=== PATIENT | male | born 1940 | race Caucasian/White ===

== ENCOUNTER 2017-04-05 10:25 | Emergency (ER) | payer MEDICARE ==
[~2017-04-05] VITALS: Ht 188 cm; Wt 82.0 kg
[~2017-04-05 10:25] MED LIST: AMLODIPINE10 MG PO; AMLODIPINE5 MG PO; ASPIRIN CHEWABL81 MG PO; CARAFATE1 GM PO; COUMADIN2.5 MG PO; COUMADIN5 MG PO; COZAAR100 MG PO; DOXAZOSIN1 MG PO; DOXAZOSIN8 M1 PO; DOXAZOSIN8 MG PO; FISH OIL1000 MG PO; HYDROCHLOROT25 MG PO; KEFLEX500 M1 PO; LOPRESSOR 550 MG/TAB PO; LOPRESSOR12.5 MG PO; LOSARTAN POT100 MG PO; LOSARTAN POTASS50 MG PO; METOPROLOL PO; NEXIUM40 M1 PO; ONE DAILY MENS PO; PROAIR HFA IN; SYMBICORT1 AE1 IN; TOPROL XL25 M1 PO; TOPROL XL50 MG PO; WARFARIN2.5 MG PO; cozaar PO
[2017-04-05] MEDS ORDERED: NORVASC2.5 MG PO (10:39)
[2017-04-05] MEDS ORDERED: GABAPENTIN100 MG PO (10:39)
[2017-04-05] MEDS ORDERED: HYDROCHLOROT12.5 M1 PO (10:40)
[2017-04-05 11:25] LABS: HEMATOCRIT 40.4 % (39.0-50.0); HEMOGLOBIN 13.6 g/dl (14.0-18.0); IMMATURE GRANULOCYTES 0.5 % (0.0-1.0); MEAN CELL VOLUME 94.8 fL CALC (80.0-100.0); MEAN CORPUSCULAR HGB 31.9 pG CALC (26.0-32.0); MEAN CORPUSCULAR HGB CONC 33.7 g/L CALC (32.0-36.0); NEUT# 3.64 thou/uL (1.82-7.42); RED BLOOD COUNT 4.26 mill/uL (4.70-6.10); RED CELL DISTRI WIDTH 12.5 % (11.5-15.5)
[2017-04-05 11:29] LABS: ALBUMIN 4.1 g/dL (3.2-5.0); ALKALINE PHOSPHATASE 45 u/l (38-126); AMYLASE 94 u/l (30-110); ANION GAP 14 (6-22 (CALC)); BILIRUBIN, TOTAL 0.8 mg/dL (0.0-1.4); BUN 18 mg/dL (8-23); BUN/CREATININE RATIO 19 (12-20 (CALC)); CALCIUM 9.4 mg/dL (8.4-10.2); CARBON DIOXIDE 30 mmol/l (22-30); CHLORIDE 103 mmol/l (95-108); GFR > 60 ML/MIN (>=60 (CALC)); GFR FOR AFR.AMER. > 60 ML/MIN (>=60 (CALC)); GLUCOSE 102 mg/dL (82-115); LIPASE 82 u/l (23-300); POTASSIUM 3.8 mmol/l (3.5-5.1); SGOT/AST 29 u/l (19-48); SGPT/ALT 34 u/l (11-66); SODIUM 143 mmol/l (137-146); TOTAL PROTEIN 7.4 g/dL (6.3-8.2)
[2017-04-05 11:40] LABS: MYOGLOBIN 71 ng/mL (0 - 121)
[2017-04-05 12:39] LABS: URINE BILIRUBIN - DIPSTICK NEGATIVE (NEGATIVE); URINE BLOOD DIPSTICK TRACE-INTACT (NEGATIVE); URINE CLARITY CLEAR; URINE COLOR YELLOW; URINE GLUCOSE - DIPSTICK NEGATIVE (NEGATIVE); URINE KETONE NEGATIVE (NEGATIVE); URINE LEUK ESTERASE NEGATIVE (NEGATIVE); URINE NITRITE - DIPSTICK NEGATIVE (Negative); URINE PH 7.5 (4.5-8.0); URINE PROTEIN - DIPSTICK NEGATIVE (NEG-TRACE); URINE UROBILINOGEN - DIPSTICK 0.2 E.U./dL (0.2)
[2017-04-05] MEDS ORDERED: CIPROFLOXACN750 MG PO (13:00)
[2017-04-05] MEDS ORDERED: COLACE100 MG PO (13:00)
[2017-04-05 13:06] VITALS: BP 130/90
== END 2017-04-05 13:10 | disposition home or self-care (01) ==
LOC: ED 10:25
PROVIDERS: Emergency Medicine
DX: R10.32 Left lower quadrant pain (principal); I10 Essential (primary) hypertension; I48.91 Unspecified atrial fibrillation; Z79.01 Long term (current) use of anticoagulants; K57.30 Diverticulosis of large intestine without perforation or abscess without bleeding
CPT/HCPCS: Q9967

== ENCOUNTER 2017-08-08 15:47 | Emergency (ER) | payer MEDICARE ==
[~2017-08-08] VITALS: Ht 188 cm; Wt 84.0 kg
[~2017-08-08 15:47] MED LIST changes: +CIPROFLOXACN750 MG PO; +COLACE100 MG PO; +GABAPENTIN100 MG PO; +HYDROCHLOROT12.5 M1 PO; +NORVASC2.5 MG PO
[2017-08-08 17:02] LABS: HEMATOCRIT 45.4 % (39.0-50.0); HEMOGLOBIN 15.3 g/dl (14.0-18.0); IMMATURE GRANULOCYTES 0.4 % (0.0-1.0); MEAN CELL VOLUME 93.4 fL CALC (80.0-100.0); MEAN CORPUSCULAR HGB 31.5 pG CALC (26.0-32.0); MEAN CORPUSCULAR HGB CONC 33.7 g/L CALC (32.0-36.0); RED BLOOD COUNT 4.86 mill/uL (4.70-6.10); RED CELL DISTRI WIDTH 12.7 % (11.5-15.5)
[2017-08-08 17:27] LABS: ALBUMIN 3.8 g/dL (3.2-5.0); ALKALINE PHOSPHATASE 74 u/l (38-126); ANION GAP 14 (6-22 (CALC)); BILIRUBIN, TOTAL 0.5 mg/dL (0.0-1.4); BUN 17 mg/dL (8-23); BUN/CREATININE RATIO 16 (12-20 (CALC)); CALCIUM 9.1 mg/dL (8.4-10.2); CARBON DIOXIDE 27 mmol/l (22-30); CHLORIDE 105 mmol/l (95-108); GFR > 60 ML/MIN (>=60 (CALC)); GFR FOR AFR.AMER. > 60 ML/MIN (>=60 (CALC)); GLUCOSE 130 mg/dL (82-115); POTASSIUM 3.6 mmol/l (3.5-5.1); SGOT/AST 37 u/l (19-48); SGPT/ALT 27 u/l (11-66); SODIUM 143 mmol/l (137-146); TOTAL PROTEIN 7.7 g/dL (6.3-8.2)
[2017-08-08 17:39] LABS: MYOGLOBIN 48 ng/mL (0 - 121)
[2017-08-08 17:56] LABS: INTERNATIONAL NORMALIZED RATIO 2.1 RATIO (0.7-1.3); PROTHROMBIN TIME 24.1 SECONDS (9.0-12.5)
[2017-08-08 17:57] VITALS: BP 111/74
== END 2017-08-08 18:01 | disposition home or self-care (01) ==
LOC: ED 15:47
PROVIDERS: Emergency Medicine
DX: I48.91 Unspecified atrial fibrillation (principal); I10 Essential (primary) hypertension; E78.5 Hyperlipidemia, unspecified; J43.9 Emphysema, unspecified; Z79.01 Long term (current) use of anticoagulants

== ENCOUNTER 2018-07-09 10:46 | Inpatient (IN) | payer MEDICARE ==
[~2018-07-09] VITALS: Ht 190.5 cm; Wt 80.5 kg
[2018-07-09] VITALS (13 sets, daily range): BP systolic 103–139; BP diastolic 63–82
[~2018-07-09 10:46] MED LIST changes: -LOPRESSOR12.5 MG PO
--- NOTE | 2018-07-09 10:46 | NUR ---
PT DIRECTLY TO ROOM VIA WHEELCHAIR. PT COOL AND DIAPHORETIC AND STEEN IN COLOR. MD NOTIFIED AND IS IN ROOM.
[2018-07-09 11:11] LABS: HEMOGLOBIN 10.5 g/dl (14.0-18.0); IMMATURE GRANULOCYTES 2.3 % (0.0-5.0); MEAN CELL VOLUME 95.2 fL CALC (80.0-100.0); MEAN CORPUSCULAR HGB 31.3 pG CALC (26.0-32.0); MEAN CORPUSCULAR HGB CONC 32.8 g/L CALC (32.0-36.0); NEUT# 8.06 thou/uL (1.82-7.42); RED BLOOD COUNT 3.36 mill/uL (4.70-6.10); RED CELL DISTRI WIDTH 19.9 % (11.5-15.5)
--- NOTE | 2018-07-09 11:24 | NUR ---
PT STATES HAVING DIARHEA FOR PAST 3 DATS. PT HAS WORSENING SOB FOR PAST 2 DAYS.; PT IS AOX4. PT DENIES ANY N/V, C/P, PT STATES FEELING WEAKER. PT HAS FULL USE OF ALL EXTREMITIES.
[2018-07-09 11:27] LABS: BILIRUBIN, TOTAL 0.7 mg/dL (0.0-1.4); CREATININE 1.6 mg/dL (0.7-1.3); POTASSIUM 3.8 mmol/l (3.5-5.1); TOTAL PROTEIN 6.7 g/dL (6.3-8.2)
--- NOTE | 2018-07-09 11:28 | NUR ---
NEOSYNEPHRINE 1 MG PUSH AT 1114 NEOSYNEPHRINE 1 MG PUSH AT 1119 MD AT BEDSIDE WITH ADMINISTRATION
[2018-07-09 12:01] LABS: INFLUENZA A NONE DETECTED (NONE DETECT); INFLUENZA B NONE DETECTED (NONE DETECT)
--- NOTE | 2018-07-09 12:01 | NUR ---
PT TO CT WITH NURSE AND PORTABLE MONITOR
[2018-07-09 12:09] LABS: INTERNATIONAL NORMALIZED RATIO 10.6 RATIO (0.7-1.3)
[2018-07-09 12:18] LABS: URINE BILIRUBIN - DIPSTICK NEGATIVE (NEGATIVE); URINE BLOOD DIPSTICK SMALL (NEGATIVE); URINE COLOR YELLOW; URINE GLUCOSE - DIPSTICK NEGATIVE (NEGATIVE); URINE KETONE NEGATIVE (NEGATIVE); URINE LEUK ESTERASE NEGATIVE (NEGATIVE); URINE NITRITE - DIPSTICK NEGATIVE (Negative); URINE PROTEIN - DIPSTICK 100 mg/dL (NEG-TRACE); URINE SPECIFIC GRAVITY 1.025; URINE UROBILINOGEN - DIPSTICK 0.2 E.U./dL (0.2)
[2018-07-09 12:26] LABS: URINE CLARITY SL CLOUDY
--- NOTE | 2018-07-09 12:28 | NUR ---
PT RETURNED FROM CT WITH NURSE. RECONNECTED TO MONITOR, NO COMPLAINTS STATED
[2018-07-09 12:29] LABS: URINE EPITHELIAL CELLS MODERATE EPI/hpf (0-FEW); URINE MUCUS FEW hpf (NONE-FEW); URINE RBC 0-2 RBC/hpf (0-5)
[2018-07-09] MEDS ORDERED: POT CHLORIDE10 ME5 PO (13:25)
--- NOTE | 2018-07-09 13:28 | NUR ---
PT RESTING ON STRETCHER, IV SALINE DISCONTINUED PER MD. PT STATES NO COMPLAINTS
--- NOTE | 2018-07-09 13:37 | NUR ---
REPORT CALLED TO STEPH FRITZ-ACCEPTED PT
--- NOTE | 2018-07-09 13:52 | NUR ---
male pt received to ICU bed 4 via stretcher accompanied by Patrick Jackman RN in stable condition; ambulatory to bed with steady gait; weight obtained via bed scale; admission assessment completed at this time; pt alert and oriented; c/c of diarrhea X3 days and worsening sob x2 days associated with fever of 102.0 at home; pt denies pain; no n/v/diaphoresis noted at this time; resp even and unlabored with exertional sob noted; lungs clear/diminished bases; skin color pale; o2 per nc at 2L; dry manual machinist cough noted; hr irreg; strong pulses; no edema noted; bilat knee high arvin hose placed; abd soft with bs present; pt admits to bm 07/09/18; admits to voiding without complication; no urine to inspect at this time; #20 in lac patent with vanco infusing without complication; #18 in rfa patent with cardizem gtt infusing at 10mg/hr; TLC intact to RIJ/ lumens flushed with good blood aspirate noted; no redness or edema noted at site; scab area with slight redness noted to upper groin/pubis are; no drainage noted; plan of care/ meds explained; call light within reach; will continue to monitor
--- NOTE | 2018-07-09 14:01 | NUR ---
Admission Note Report Given to: STEPH RN Transported by: Wheelchair X Stretcher Transported with: X Nurse Transporter X Patent IV X O2 X Flight Control Tower Operator PT TRANSPORTED TO ICU 4 WITHOUT INCIDENT. LEVOFED AND NEOSYNEPHRINE MIX GIVEN TO RN.
--- NOTE | 2018-07-09 14:35 | NUR ---
Dr Chavarria present at bedside to assess pt and discuss plan of care; pt will conitnue with Cradizem gtt; MD to be notified with hypotension;
--- NOTE | 2018-07-09 15:00 | NUR ---
awake in bed; offers no complaints; no distress noted; afib on monitor; hr 90s; bp maintained; deny needs; iv patent; cardizem gtt continues at 10mg/hr; call light within reach; will continue to monitor
--- NOTE | 2018-07-09 15:13 | NUR ---
US at bedside for renal ultrasound
--- NOTE | 2018-07-09 16:10 | NUR ---
up to bsc with stand by assist; sob noted on exertion associated with tachycardia; slow deep breathing encouraged; o2 per nc; afib on monitor; mod loose brown bm noted; #18 dislodged from rfa with catheter tip intact; pressure dressing applied; cardizem infusing via TLC; pt deny needs; call light within reach; will continue to monitor
--- NOTE | 2018-07-09 16:19 | NUR ---
s/o present at bedside; copy of living will obtained and placed on chart;
--- NOTE | 2018-07-09 16:29 | NUR ---
Dr Chavarria informed per this race and sports book writer, no active orders for antibiotics/ fluids; no orders received
--- NOTE | 2018-07-09 18:14 | NUR ---
awake in bed; no distress noted; iv patent; no redness or edema noted at sites; afib on monitor; cardizem gtt continues at 10mg/hr; bp stable; pt offers no complaints; bed in lowest position; side rails elevated; call light within reach
--- NOTE | 2018-07-09 19:20 | NUR ---
awake. denies distress. o2 cont per nc. school lunch monitor shows a fib pvcs. #20 lac saline lock. cardizem gtt infusing @ 10mghr per rij. po fluids taken fair. voids per urinal. fall precautions cont.
--- NOTE | 2018-07-09 21:00 | NUR ---
mechanical manufacturing technician here.
--- NOTE | 2018-07-09 22:00 | NUR ---
animal technician left.
--- NOTE | 2018-07-09 23:15 | NUR ---
stood with assist to void. pt became VERY sob with activity. o2 sat 85%. 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 voided then back to bed. fan provided. after resting o2 sat 93% hr 104.
[2018-07-10] VITALS (21 sets, daily range): BP systolic 95–160; BP diastolic 59–94
--- NOTE | 2018-07-10 01:50 | NUR ---
phototypesetting equipment monitor shows sinus rhythm pacs hr 72. rt notified of need for ekg.
--- NOTE | 2018-07-10 01:52 | NUR ---
rt here. ekg obtained.
--- NOTE | 2018-07-10 04:00 | NUR ---
awake. no distress. manager monitoring shows sinus rhythm pvcs.
--- NOTE | 2018-07-10 05:00 | NUR ---
blood drawn & sent to lab.
[2018-07-10 05:25] LABS: HEMATOCRIT 26.4 % (39.0-50.0); IMMATURE GRANULOCYTES 2.1 % (0.0-5.0); MEAN CELL VOLUME 93.6 fL CALC (80.0-100.0); MEAN CORPUSCULAR HGB 31.9 pG CALC (26.0-32.0); MEAN CORPUSCULAR HGB CONC 34.1 g/L CALC (32.0-36.0); NEUT# 5.14 thou/uL (1.82-7.42); RED BLOOD COUNT 2.82 mill/uL (4.70-6.10); RED CELL DISTRI WIDTH 19.8 % (11.5-15.5)
[2018-07-10 05:40] LABS: INTERNATIONAL NORMALIZED RATIO 3.8 RATIO (0.7-1.3); PROTHROMBIN TIME 39.1 SECONDS (9.0-12.5)
[2018-07-10 05:47] LABS: BILIRUBIN, TOTAL 0.7 mg/dL (0.0-1.4); CREATININE 1.4 mg/dL (0.7-1.3); POTASSIUM 3.8 mmol/l (3.5-5.1)
[2018-07-10 05:54] LABS: ALBUMIN 2.3 g/dL (3.2-5.0); TOTAL PROTEIN 5.3 g/dL (6.3-8.2)
--- NOTE | 2018-07-10 07:20 | NUR ---
PT RESTING IN BED WATCHING TELEVISION, AM ASSESSMENT COMPLETED AT THIS TIME, R IJ TLC NOTED WITH DRESSING CLEAN DRY AND INTACT; MAGNESIUM IV INFUSING ORDERED AND CARDIZEM GTT INFUSING PER PROTOCOL AT 10mg/hr; ALL LUMENS OF TLC FLUSHED W/O INCIDENT AND GOOD ASPIRATE NOTED; LUNGS DIMINSHED BUT CLEAR; PT ON O2 AT 2L VIA NC WITH DYSPNEA NOTED JUST DURING CONVERSATION W/O EXERTION; PT DENIES O2 USAGE AT HOME; ABD SOFT; BS ACTIVE STATES DIARRHEA AT HOME BUT RESOLVED PRIOR TO ADMISSION; DENIES FEELING CONSTIPATED; SKIN WARM DRY AND INTACT; NO BREAKDOWN NOTED; PT ADMITS TO CURRENT CHEMOTHERAPY RELATED TO BLADDER CA; STATES HE WAS DUE YESTERDAY FOR A TREATMENT BUT CANCELLED RELATED TO HOSPITALIZATION. NO EDEMA NOTED; PT AFEBRILE AND B/P STABLE; SEE INTERVENTIONS; SAFETY MEASURES REINFORCED; CALL HERNANDEZ WITHIN REACH; INSTRUCTED TO CALL FOR ANY NEEDED ASSISTANCE; WILL CONTINUE TO MONITOR.
--- NOTE | 2018-07-10 07:45 | NUR ---
SET UP ASSIST PROVIDED FOR AM MEAL; CALLBELL WITHIN REACH.
--- NOTE | 2018-07-10 07:50 | NUR ---
AT BEDSIDE; PLAN OF CARE DISCUSSED; INCLUDING OBTAINING RECORDS FROM PT'S STAVE JOINTER. CONSENT OBTAINED.
--- NOTE | 2018-07-10 08:20 | NUR ---
BLOOD CULTURE PRELIMINARY RESULTS CALLED TO AT 0752. NO NEW ORDERS AT THIS TIME.
--- NOTE | 2018-07-10 08:28 | NUR ---
PT ATE MINIMAL AMOUNT OF AM MEAL; OFFERS NO COMPLAINTS; TELE CONTINUES TO READ AFIB RATE IN THE 80-LOW 100'S. BP REMAINS STABLE; WILL CONTINUE TO MONITOR.
--- NOTE | 2018-07-10 09:35 | NUR ---
INTO SEE PATIENT; PLAN OF CARE DISCUSSED INCLUDING CHANGING IV ABT TO VANCO RELATED TO +BC AND PT IMMUNOCOMPROMISED R/T CHEMO TREATMENT; ALSO AWARE OF SLIGHTLY REDDENED SCABBED AREA TO PUBIC AREA AND SMALL PUSTULE NOTED RIGHT AT BASE OF PENIS IN PUBIC AREA; PT STATES THAT THE REDDENED AREA STARTED OFF A "PIMPLE LIKE THING THAT GOT BIGGER AND WAS REALLY SORE". PHARMACY CONSULTED FOR VANCO THERAPY; SIGNIFICANT OTHER AT BEDSIDE AND BOTH VERBALIZE UNDERSTANDING OF CURRENT TREATMENT PLAN.
--- NOTE | 2018-07-10 10:07 | NUR ---
PER CONTINUE TO WEAN CARDIZEM AND GIVE BUMEX AFTER SBP REMAINS > 120. WILL CONTINUE TO MONITOR.
--- NOTE | 2018-07-10 11:07 | NUR ---
CARDIZEM DTT REMAINS OFF, BP STABLE SEE INTERVENTIONS AND HR MAINTAINED AT 60-80. CALL HERNANDEZ WITHIN REACH, OFFERS NO COMPLAINTS, WILL MEDICATED WITH BUMEX ORDERED AND MONITOR OUTPUT AND PT TOLERANCE; PT EDUCATED REGARDING THE REASON FRO ADMINISTRATION OF BUMEX; EXPECTATIONS; AND POSSIBLE SIDE EFFECTS. ALL QUESTIONS ANSWERED AND PT VERBALIZES UNDERSTANDING.
--- NOTE | 2018-07-10 11:35 | NUR ---
CENTRAL LINE DRESSING CHANGE USING STERILE TECHNIQUE PER PT REQUEST RELATED TO SKIN PULLING FROM DRESSING; PT TOLERATED WELL AND NO S/S OF INFECTION NOTED. PT ASSISTED TO SITTING ON EDGE OF BED FOR AM MEAL; FLUID SECRETIONS FROM NASAL CAVITY COLLECTED PER VERBAL ORDER .
--- NOTE | 2018-07-10 12:27 | NUR ---
TOLERATED AFTERNOON MEAL WELL WITH 50%+ INTAKE AND GOOD TOLERANCE, TAL FROM DIETARY AT BEDSIDE FOR DIEATRY EDUCATION AND SELECTIONS.
--- NOTE | 2018-07-10 13:26 | NUR ---
S: HEMAL DUNNE is a 77 M who presents with SOB, dizziness, and diarrhea. He has a history of HTN, Afib, bladder cancer, and emphysema. All medications in patient's chart were reviewed. O: VS: BP 122/73 mmHg, P 86 bpm, RR 22,T(F) 98.5 W 76.26 kg, HT 190.5 cm, Scr= 1.4, CrCl= 49 ml/min A: Blood culture shows gram positive cocci x 1 bottle. P: Patient was on Zosyn 3.375 gm IV Q6H and was d/c'd on 07/10/18. Vancomycin ordered for pharmacy to dose. Start Vancomycin 1 gm IV Q24H. Vancomycin trough is drawn before the 4th dose on 07/12/19 at 1130. Vancomycin goal trough is between 15-20 mcg/ml. Pharmacy will follow and or advise on antibiotics use as needed.
--- NOTE | 2018-07-10 13:30 | NUR ---
pt resting in bed watching television, offers no new complaints, easily visible from nurses station fpr safety. Fresh water provided, will continue to monitor.
--- NOTE | 2018-07-10 14:45 | NUR ---
PT RESTING IN BED USES URINAL W/O INCIDENT, CALL HERNANDEZ WITHIN REACH, WILL CONTINUE TO MONITOR.
--- NOTE | 2018-07-10 16:00 | NUR ---
SIGNIFICANT OTHER AT BEDSIDE, OFFERS NO NEW COMPLAINTS, CALL HERNANDEZ WITHIN REACH, CONTINUES TO USE URINAL W/O INCIDENT, WILL CONTINUE TO MONITOR.
--- NOTE | 2018-07-10 16:37 | NUR ---
CASE MGMT AT BEDSIDE, DISCUSSING D/C PLAN, CALL HERNANDEZ WITHIN REACH, SIGNIFICANT OTHER REMAINS AT BEDSIDE. WILL CONTINUE TO MONITOR.
--- NOTE | 2018-07-10 17:32 | NUR ---
SET UP ASSIST PROVIDED FOR PM MEAL, CALL HERNANDEZ WITHIN REACH.
--- NOTE | 2018-07-10 18:16 | NUR ---
PT OOB TO BSC WITH MIN STAND BY ASSIST, TOLERATED ACTIVITY WELL WITH MINIMAL SHORTNESS OF BREATH, TOILET PAPER AND CALL HERNANDEZ WITHIN REACH.
--- NOTE | 2018-07-10 18:33 | NUR ---
PT CONTINENTN OF URINE AND SMALL LOOSE BM, ASSISTED WITH BRYAN CARE, PT SOB FROM EXERTION ASSISTED BACK TO BED AND COMFORT MEASURES PROVIDED, FAN ON PT FOR COMFORT, CALL HERNANDEZ WITHIN REACH; WILL CONTINUE TO MONITOR.
--- NOTE | 2018-07-10 18:36 | NUR ---
SMALL AMOUNT OF BLOOD NOTED WITH NASAL DRNG, R.T. TO HUMIDIFY OXYGEN FOR COMFORT, WILL CONTINUE TO MONITOR.
--- NOTE | 2018-07-10 19:20 | NUR ---
awake. denies c/o. o2 cont per nc. rn cardiac cath shows sinus rhythm pvcs. #20 lac & rij tlc saline lock. po fluids taken fair. voids per urinal. fall precautions cont.
--- NOTE | 2018-07-10 19:26 | NUR ---
youth nutritional monitor shows a fib pvcs hr 130.
--- NOTE | 2018-07-10 22:00 | NUR ---
awake. no distress. superintendent maintenance shows a fib pvcs.
[2018-07-11] VITALS (18 sets, daily range): BP systolic 110–142; BP diastolic 77–93
--- NOTE | 2018-07-11 00:01 | NUR ---
eyes closed. no distress. dirt bike mechanic shows a fib pvcs.
--- NOTE | 2018-07-11 02:00 | NUR ---
resting quietly. resps even & unlabored. no apparent distress.
--- NOTE | 2018-07-11 04:50 | NUR ---
blood drawn & sent to lab. bed weight obtained.
[2018-07-11 05:04] LABS: HEMATOCRIT 28.2 % (39.0-50.0); HEMOGLOBIN 9.5 g/dl (14.0-18.0); IMMATURE GRANULOCYTES 1.5 % (0.0-5.0); MEAN CELL VOLUME 93.4 fL CALC (80.0-100.0); MEAN CORPUSCULAR HGB 31.5 pG CALC (26.0-32.0); MEAN CORPUSCULAR HGB CONC 33.7 g/L CALC (32.0-36.0); NEUT# 3.92 thou/uL (1.82-7.42); RED BLOOD COUNT 3.02 mill/uL (4.70-6.10); RED CELL DISTRI WIDTH 19.6 % (11.5-15.5)
[2018-07-11 05:27] LABS: ALBUMIN 2.3 g/dL (3.2-5.0); ALKALINE PHOSPHATASE 52 u/l (38-126); BILIRUBIN, TOTAL 0.9 mg/dL (0.0-1.4); BUN 21 mg/dL (8-23); BUN/CREATININE RATIO 17 (12-20 (CALC)); CARBON DIOXIDE 29 mmol/l (22-30); CHLORIDE 100 mmol/l (95-108); CREATININE 1.2 mg/dL (0.7-1.3); GFR 59 ML/MIN (>=60 (CALC)); GFR FOR AFR.AMER. > 60 ML/MIN (>=60 (CALC)); SGOT/AST 40 u/l (19-48); SODIUM 134 mmol/l (137-146); TOTAL PROTEIN 5.5 g/dL (6.3-8.2)
[2018-07-11 05:30] LABS: ANION GAP 8 (6-22 (CALC)); MAGNESIUM 1.3 mg/dL (1.6-2.3)
[2018-07-11 05:48] LABS: INTERNATIONAL NORMALIZED RATIO 2.1 RATIO (0.7-1.3); PROTHROMBIN TIME 21.4 SECONDS (9.0-12.5)
--- NOTE | 2018-07-11 06:00 | NUR ---
awake. no distress. cardiac care unit nurse shows a fib pvcs.
--- NOTE | 2018-07-11 06:10 | NUR ---
dr mercer notified of change in rhythm.
--- NOTE | 2018-07-11 07:15 | NUR ---
PT RESTING IN BED WATCHING TELEVISION, AM ASSESSMENT COMPLETED AT THIS TIME, R IJ TLC NOTED WITH DRESSING CLEAN DRY AND INTACT; ALL LUMENS OF TLC FLUSHED W/O INCIDENT AND GOOD ASPIRATE NOTED; LUNGS DIMINSHED BUT CLEAR; PT ON O2 AT 2L VIA NC WITH DYSPNEA NOTED JUST DURING CONVERSATION W/O EXERTION; PT DENIES O2 USAGE AT HOME; ABD SOFT; BS ACTIVE LAST BM LAST PM SLIGHTLY LOOSE; DENIES FEELING CONSTIPATED; SKIN WARM DRY AND INTACT; NO BREAKDOWN NOTED; NO EDEMA NOTED; PT AFEBRILE AND B/P STABLE; SEE INTERVENTIONS; SAFETY MEASURES REINFORCED; CALL HERNANDEZ WITHIN REACH; INSTRUCTED TO CALL FOR ANY NEEDED ASSISTANCE; WILL CONTINUE TO MONITOR.
--- NOTE | 2018-07-11 08:05 | NUR ---
VISITOR AT BEDSIDE, MAGNESIUM INFUSING ORDERED. TOLERATED AM MEAL WELL CONSUMING 100%, CALL HERNANDEZ WITHIN REACH, WILL CONTINUE TO MONITOR.
--- NOTE | 2018-07-11 08:46 | NUR ---
PT RESTING IN BED, CONTINUES TO VISIT WITH VISITOR, OFFERS NO NEW COMPLAINTS, TELE COTNINUES READING A FIB RATE 120-140'S ELEVATES WITHMINIAML EXERTION; EASILY VISIBLE FROM NURSES STATION; CALL HERNANDEZ WITHIN REACH
--- NOTE | 2018-07-11 09:50 | NUR ---
PT RESTING IN BED, ALERT AND ORIENTED, URINAL WITHIN REACH, OFFERS NO NEW COMPLAINTS. CALL HERNANDEZ WITHIN REACH.
--- NOTE | 2018-07-11 10:56 | NUR ---
IN TO SEE PT. PLAN OF CARE DISCUSSED. CALL HERNANDEZ WITHIN REACH.
--- NOTE | 2018-07-11 11:18 | NUR ---
PT RESTING IN BED, OFFERED AM ADL CARE PT STATES HE WOULD LIKE TO WAIT UNTIL AFTER LUNCH. COMFORT MEASURES PROVIDED, CALL HERNANDEZ WITHIN REACH, WILL CONTINUE TO MONITOR.
--- NOTE | 2018-07-11 11:49 | NUR ---
VANCO TROUGH DRAWN PER PHARMACIST, SETUP ASSIST PROVIDED FOR AFTERNOON MEAL, CALL HERNANDEZ WITHIN REACH, WILL CONTINUE TO MONITOR.
--- NOTE | 2018-07-11 12:20 | NUR ---
PT STOD AND TRANSFERRED TO W/C TO RADIOLOGY FOPR CT ORDERED VIA W/C WITH O2 AT 2L.
--- NOTE | 2018-07-11 12:35 | NUR ---
PT BACK FROM CT SCAN. BACK TO BED AFTER LINENS CHANGED, COMFORT MEASURES PROVIDED, CALL HERNANDEZ WITHIN REACH. WILL CONTINUE TO MONITOR.
--- NOTE | 2018-07-11 13:00 | NUR ---
MARCELLA INFUSING ORDERED W/O INCIDENT, CALL HERNANDEZ WITHIN REACH.
--- NOTE | 2018-07-11 13:29 | NUR ---
ADL CARE PROVIDED (FULL BED BATH) LOTION APPLIED, PT TOLERATED WELL WITH SOME MILD DYSPNEA, CALL HERNANDEZ WITHIN REACH, SIGNIFICANT OTHER AT BEDSIDE, WILL CONTINUE TO MONITOR.
--- NOTE | 2018-07-11 16:21 | NUR ---
S: HEMAL DUNNE is a 77 M who presents with shortness of breath . He has a history of hypertension,Afib,CA Emphysema. All medications in patient's chart were reviewed. O: VS: BP 128/81 , P 114, RR 22,T 98.7 W 76.43 kg, HT 75 cm, Scr=1.2 ,CrCl= 57 ml/min A: Blood culture show gram postive cocci which is sensitive to ampicillin. P: Vancomycin ordered for pharmacy to dose. Start Vancomycin 1g IV Q12H. Vancomycin trough is drawn before the 4th dose on 07/13/18 @0000 Vancomycin goal trough is between 15-20 mcg/ml. Pharmacy will follow and or advise on antibiotics use as needed.
--- NOTE | 2018-07-11 18:24 | NUR ---
PARTIAL LINEN CHANGE COMPLETED RELATED TO SPILLED URINAL, PT TOLERATED W/O INCIDENT. CALL HERNANDEZ WITHIN REACH.
--- NOTE | 2018-07-11 19:30 | NUR ---
awake. no acute distress. secured entrance monitor shows a fib pvcs. rij tlc in place. po fluids taken well. voids per urinal. fall precautions cont.
--- NOTE | 2018-07-11 22:00 | NUR ---
watching tv. no distress. personnel monitor shows a fib pvcs.
[2018-07-12] VITALS (18 sets, daily range): BP systolic 93–154; BP diastolic 63–94
--- NOTE | 2018-07-12 00:01 | NUR ---
eyes closed. no distress. cardiac nurse practitioner shows a fib pvcs.
--- NOTE | 2018-07-12 02:00 | NUR ---
resting quietly. resps even & unlabored. no apparent distress.
--- NOTE | 2018-07-12 04:40 | NUR ---
blood drawn & sent to lab.
[2018-07-12 05:19] LABS: INTERNATIONAL NORMALIZED RATIO 2.1 RATIO (0.7-1.3); PROTHROMBIN TIME 21.5 SECONDS (9.0-12.5)
--- NOTE | 2018-07-12 06:00 | NUR ---
eyes closed. no distress. brine room laborer shows a fib pvcs.
--- NOTE | 2018-07-12 07:25 | NUR ---
pt awake in bed; no distress noted; pt offers no complaints; assessment completed at this time; pt alert and oriented; states "I want to go home, I'm bored"; denies pain; no n/v/diaphoresis noted; resp even and unlabored; lungs clear with rales in bases; skin color wnl; o2 per nc at 2L; pt very sob on minimal exertion; sr. manager cough noted; hr irreg; strong pulses; no edema noted; afib on monitor; abd soft with bs pesent; no bm noted per procedure writer; pt voiding clear dark yellow urine; urinal at bedside; TLC to RIJ saline locked; no redness or edema noted at site; dressing cdi; plan of care/ am meds explained; bed in lowest position; call light within reach
--- NOTE | 2018-07-12 07:37 | NUR ---
am lopressor administered at this time due to elevated hr; pt denies chest pain or palpitations; call light within reach; will continue to monitor
--- NOTE | 2018-07-12 08:10 | NUR ---
awake in bed; no distress noted; pt offers no complaints; TLC intact; afib on monitor; call light within reach; will continue to monitor
--- NOTE | 2018-07-12 08:27 | NUR ---
blog writer spoke with SCREENER AND BLENDER Madisyn in regards to elevated HR; informed SCREENER AND BLENDER, pt is afib 120-150s; blog writer informed SCREENER AND BLENDER lopressor was administered at 0737 d/t tachycardia; blog writer also informed SCREENER AND BLENDER of pt concerns regarding symbicort; orders to be placed;
[2018-07-12 09:00] LABS: HEMATOCRIT 28.9 % (39.0-50.0); HEMOGLOBIN 9.5 g/dl (14.0-18.0); IMMATURE GRANULOCYTES 1.4 % (0.0-5.0); MEAN CELL VOLUME 96.3 fL CALC (80.0-100.0); MEAN CORPUSCULAR HGB 31.7 pG CALC (26.0-32.0); MEAN CORPUSCULAR HGB CONC 32.9 g/L CALC (32.0-36.0); NEUT# 4.43 thou/uL (1.82-7.42); RED CELL DISTRI WIDTH 20.2 % (11.5-15.5)
[2018-07-12 09:07] LABS: ANION GAP 7 (6-22 (CALC)); BUN 24 mg/dL (8-23); BUN/CREATININE RATIO 22 (12-20 (CALC)); CARBON DIOXIDE 31 mmol/l (22-30); CHLORIDE 99 mmol/l (95-108); CREATININE 1.1 mg/dL (0.7-1.3); GFR > 60 ML/MIN (>=60 (CALC)); GFR FOR AFR.AMER. > 60 ML/MIN (>=60 (CALC)); POTASSIUM 3.3 mmol/l (3.5-5.1); SODIUM 134 mmol/l (137-146)
[2018-07-12 09:53] LABS: MAGNESIUM 1.7 mg/dL (1.6-2.3)
--- NOTE | 2018-07-12 10:08 | NUR ---
awake in bed; spouse present at bedside; no distress noted; pt offers no complaints; iv intact; afib on monitor; call light within reach; will continue to monitor
--- NOTE | 2018-07-12 11:27 | NUR ---
GLOBAL EXPANSION SALES DIRECTOR Madisyn at bedside to assess pt and discuss plan of care
--- NOTE | 2018-07-12 12:15 | NUR ---
awake in bed; no distress noted; pt offers no complaints; iv intact to RIJ; o2 per nc; afib on monitor; call light within reach; will continue to monitor
--- NOTE | 2018-07-12 12:50 | NUR ---
Dr Christensen present at bedside to assess pt and discuss plan of care
--- NOTE | 2018-07-12 14:11 | NUR ---
awake conversing on cell phone; no distress noted; pt offers no complaints; afib 120s on monitor; o2 per nc; call light within reach; will continue to monitor
--- NOTE | 2018-07-12 15:18 | NUR ---
MINE Mars informed of tachycardia; afin 120-140 on monitor; 150-160s with activity/ while up to bsc
--- NOTE | 2018-07-12 16:05 | NUR ---
awake in bed; visitor at bedside; iv intact; o2 per nc; pt offers no complaints; afib on monitor; call light within reach; will continue to monitor
--- NOTE | 2018-07-12 18:04 | NUR ---
awake in bed; spouse present at bedside; no distress noted; pt offers no complaints; iv intact; o2 per nc; afib on monitor; bed in lowest position; side rails elevated; call light within reach
--- NOTE | 2018-07-12 18:50 | NUR ---
REPORT FROM Daria OBANDO RN. ASSUMED PT. CARE.
--- NOTE | 2018-07-12 19:35 | NUR ---
PT. FOUND AWAKE, ALERT, ORIENTED X 3. SKIN WARM AND DRY. RESPS EVEN AND UNLABORED. INTERMITTENT NON-PRODUCTIVE COUGH NOTED. BOWEL SOUNDS PRESENT IN 4 QUADS. AFEBRILE AT 99.1 AT THIS TIME. PT. REMAINS IN A-FIB WITH RATE IN THE 100-130'S. BP STABLE. RESPS EVEN ADN UNLABORED. PT. DENIES COMPLAINT OR NEED AT THIS TIME. OFFERED BLANKET, BUT DECLINED. PULSES INTACT THROUGHOUT. LUNGS CTA. CALL LIGHT REMAINS WITHIN REACH. WILL CONTINUE TO ASSESS.
--- NOTE | 2018-07-12 21:05 | NUR ---
PT. MEDICATED PER PHYSICIAN ORDERS. AWARE OF CHANGE IN DOSING OF MEDICATIONS. DENIES COMPLAINTS OF PAIN OR NEED. PT. OFFERED BLANKET, BUT HE DECLINED AT THIS TIME. BLANKET LEFT AT BEDSIDE IN CASE OF PATIENT NEEDS. UPDATED ON PLAN OF CARE FOR THE EVENING. WILL CONTINUE TO MONITOR.
--- NOTE | 2018-07-12 23:05 | NUR ---
PT. HR SLIGHTLY IMPROVED. OCCASIONALLY IN THE 80'S, UP TO 110'S AT THIS TIME. REMAINS IN A-FIB, BUT IN NO DISTRESS. CALL LIGHT REMAINS WITHIN REACH. WILL CONTINUE TO ASSESS.
[2018-07-13] VITALS (13 sets, daily range): BP systolic 97–137; BP diastolic 61–91
--- NOTE | 2018-07-13 00:05 | NUR ---
BLOOD SAMPLE OBTAINED FROM RT. IJ CENTRAL LINE FOR VANCO TROUGH. POST LAB DRAW, VANCO INFUSION INITIATED. WILL CONTINUE TO MONITOR.
--- NOTE | 2018-07-13 00:14 | NUR ---
PT. REMAINS STABLE. HR NOW IN THE 80-110'S. REMAINS A-FIB. DENIES COMPLAINTS OF PAIN OR NEED AT THIS TIME. RESPS REMAIN EVEN AND UNLABORED. REMAINS AFEBRILE. WILL CONTINUE TO ASSESS.
--- NOTE | 2018-07-13 02:14 | NUR ---
PT. RESTING IN BED IN NO DISTRESS. IV VANCOMYCIN COMPLETE AT THIS TIME. PT. REMAINS IN A-FIB WITH RATE IN THE 90-110'S. BP STABLE. NO REACTIONS NOTED TO INFUSED VANCO. WILL CONTINUE TO MONTIOR.
--- NOTE | 2018-07-13 04:17 | NUR ---
PT. REMAINS RESTING IN BED WITH EYES CLOSED AND IN NO DISTRESS. RESPS REMAIN EVEN AND UNLABORED. PT. REMAINS IN A-FIB WITH RATE IN THE 90-110'S. CALL LIGHT REMAINS WITHIN REACH. WILL CONTINUE TO ASSESS.
--- NOTE | 2018-07-13 06:08 | NUR ---
PT. EASILY AROUSABLE TO LIGHT VERBAL STIMULI. NO DISTRESS NOTED. REMAINS AWAKE, ALERT, ORIENTED X 3. SKIN WARM AND DRY. RESPS EVEN AND UNLABORED. REMAINS IN A-FIB WITH RATE IN THE 100-110'S. DENIES COMPLAINTS OF PAIN. WATER PITCHER REFILLED AT THIS TIME. BLOOD SAMPLES OBTAINED AND TRIPLE LUMEN FLUSHED PER ORDERS. UPDATED ON PLAN OF CARE FOR THE AM. DENIES OTHER COMPLAINTS AT THIS TIME.
[2018-07-13 06:16] LABS: HEMATOCRIT 27.6 % (39.0-50.0); HEMOGLOBIN 9.1 g/dl (14.0-18.0); IMMATURE GRANULOCYTES 2.3 % (0.0-5.0); MEAN CELL VOLUME 96.2 fL CALC (80.0-100.0); MEAN CORPUSCULAR HGB 31.7 pG CALC (26.0-32.0); NEUT# 5.73 thou/uL (1.82-7.42); RED BLOOD COUNT 2.87 mill/uL (4.70-6.10); RED CELL DISTRI WIDTH 20.3 % (11.5-15.5)
[2018-07-13 06:28] LABS: ANION GAP 7 (6-22 (CALC)); BUN 29 mg/dL (8-23); BUN/CREATININE RATIO 27 (12-20 (CALC)); CARBON DIOXIDE 31 mmol/l (22-30); CHLORIDE 102 mmol/l (95-108); CREATININE 1.1 mg/dL (0.7-1.3); GFR > 60 ML/MIN (>=60 (CALC)); GFR FOR AFR.AMER. > 60 ML/MIN (>=60 (CALC)); POTASSIUM 3.2 mmol/l (3.5-5.1); SODIUM 136 mmol/l (137-146)
[2018-07-13 06:37] LABS: PROTHROMBIN TIME 30.8 SECONDS (9.0-12.5)
--- NOTE | 2018-07-13 06:45 | NUR ---
RECIEVED REPORT FROM LAM COOPER. ASSUMED PT CARE.
--- NOTE | 2018-07-13 07:15 | NUR ---
PT A&OX3, ABLE TO MAKE NEEDS KNOWN. PERRL. PT AFIB ON TELEMETRY. HR 112, B/P- 129/82, RR-23, SA02@93% ON 2LPM VIA NC. PT RESPIRATIONS EVEN/UNLABORED, LS CLEAR THROUGHOUT, PT SOB WITH MINIMAL EXERTION, DENIES CHEAT PAIN OR DISTRESS AT THIS TIME. ABDOMEN SOFT, DISTENDED, NON- TENDER. BSX4 ACTIVE. PT REPORTS LAST BM 07-12-18. CONT OF BLADDER, VOID X1, PRINCE URINE. TL TO RIJ/SL, NO S/S OF INFILTRATION OR REDNESS NOTED AT SITE, DRESSING CDI. PT RESTING IN BED, CALL LIGHT IN REACH. WILL MONITOR.
--- NOTE | 2018-07-13 07:45 | NUR ---
DIETARY ON UNIT, BREAKFAST TRAY SET UP.
--- NOTE | 2018-07-13 09:30 | NUR ---
AT BEDSIDE FOR VISIT.
--- NOTE | 2018-07-13 10:19 | NUR ---
Patient INR reads 3 today with yesterday read of 2.1, will hold dose today and start 2.5 mg 07/14/18 pending INR result.
--- NOTE | 2018-07-13 10:30 | NUR ---
SAP SENIOR DEVELOPER AT BEDSIDE, MEDICATION Q&A. REMAINS AT BEDSIDE.
--- NOTE | 2018-07-13 11:30 | NUR ---
NOTIFIED ANJELICA ANDUJAR IN REGARDS TO PT CONTINUOUS HR IN 120-130'S AND PT NON- PRODUCTIVE DRY COUGH.
--- NOTE | 2018-07-13 12:00 | NUR ---
ANJELICA CEJA AT BEDSIDE FOR ASSESSMENT AND TO DISCUSS PLAN OF CARE. NEW ORDERS RECIEVED.
--- NOTE | 2018-07-13 14:00 | NUR ---
PT RESTING IN BED WITH EYES CLOSED, OFFERS NO COMPLAINTS AT THIS TIME.
--- NOTE | 2018-07-13 14:34 | NUR ---
S: HEMAL DUNNE is a 77 M who presents with Bacteremia He has a history of Hypertension, Afib,Bladder CA, Emphysema. All medications in patient's chart were reviewed. O: VS: BP 110/70 , P 120, RR 21,T 97.9 W 76.43 kg, HT 75 in , Scr= 1.1 ,CrCl= 62.72 ml/min Vancomycin trough 07/13 @0010 = 18 A: Blood culture show Enterococcus Hirae which is sensitive to Ampicillin,Cipro,Vancomycin, Doxycycline Vancomycin trough is within therapeutic range. No dose adjustment needed. P: Patient is on Vancomycin 1g IV Q12H Vancomycin ordered for pharmacy to dose. Continuing Vancomycin 1g IV Q12H. Vancomycin trough is drawn before the dose on 07/15/18 @1130. Vancomycin goal trough is between 15-20 mcg/ml. Pharmacy will follow and or advise on antibiotics use as needed.
--- NOTE | 2018-07-13 15:02 | NUR ---
NOTIFIED ANJELICA ANDUJAR OF NO CHANGE IN PT HR, CONTINUES IN 120- 130'S. PT NO COMPLAINS OF HEADACHE. AT BEDSIDE. CALL LIGHT IN REACH. WILL MONITOR.
--- NOTE | 2018-07-13 15:23 | NUR ---
NEW ORDERS RECIEVED. PT UPDATED. COOL CLOTH APPLIED TO FOREHEAD. REMAINS AT BEDSIDE.
--- NOTE | 2018-07-13 15:30 | NUR ---
PT MEDICATED WITH TYLENOL, PRN ORDERED FOR HEADACHE. WARM TEA GIVEN FOR COMFORT PER PT REQUEST. CALL LIGHT IN REACH. WILL MONITOR.
--- NOTE | 2018-07-13 16:28 | NUR ---
PT RESTING IN BED WITH EYES CLOSED , COOL CLOTH REMAINS ON FOREHEAD. AT BEDSIDE. CALL LIGHT IN REACH. WILL MONITOR.
--- NOTE | 2018-07-13 17:20 | NUR ---
PT MEDICATED FOR TEMP OF 100.4 ORDERED, ANJELICA ANDUJAR NOTIFIED OF PT CONDITION. COOL CLOTHS APPLIED TO FOREHEAD AND ARMPITS FOR COMFORT. WILL MONITOR.
--- NOTE | 2018-07-13 17:45 | NUR ---
DIETARY ON UNIT, DINNER TRAY SET UP. WILL MONITOR.
--- NOTE | 2018-07-13 17:46 | NUR ---
PT ABLE TO COUGH UP SOME SPUTUM, BLOOD TINGED, SPECIMEN OBTAINED FOR LAB, ARIES IN LAB NOTIFIED FOR METALWORKING SPECIALIST.
--- NOTE | 2018-07-13 17:55 | NUR ---
PT TEMP DOWN TO 97.7, STATED HEADACH IS COMPLETELY GONE. WILL CONTINUE TO MONITOR.
--- NOTE | 2018-07-13 18:20 | NUR ---
PT RESTING IN BED, TALKING ON CELL PHONE, OFFERS NO COMPLAINTS AT THIS TIME.
--- NOTE | 2018-07-13 18:45 | NUR ---
REPORT FROM Nkechi GARCIA RN. ASSUMED PT. CARE.
--- NOTE | 2018-07-13 19:25 | NUR ---
PT. FOUND AWAKE, ALERT, ORIENTED X 3. SKIN WARM AND DRY. EVELIA. RESPS EVEN AND UNLABORED. SPEAKS IN FULL SENTENCES. BOWEL SOUNDS PRESENT IN ALL QUADS. LUNGS CTA. HAIR. DENIES COMPLAINTS OF PAIN. HR IN THE 70-110'S. NO EDEMA NOTED. AFEBRILE. UTILIZING CELL PHONE AT THIS TIME. UPDATED ON HS PLAN OF CARE. WILL CONTINUE TO CLOSELY MONITOR.
--- NOTE | 2018-07-13 20:52 | NUR ---
PT. CONTINUES TO REST IN NO DISTRESS. CALL LIGHT REMAINS WITHIN REACH. RESPS REMAIN EVEN AND UNLABORED. CONTINUES IN A-FIB WITH RATE IN THE 70-90'S.
--- NOTE | 2018-07-13 21:35 | NUR ---
PT. MEDICATED PER PHYSICIAN ORDERS. DENIES COMPLAINTS OR NEEDS AT THIS TIME. REMAINS IN A-FIB RATE CONTROLLED. WILL CONTINUE TO ASSESS.
--- NOTE | 2018-07-13 23:02 | NUR ---
PT. RESTING IN BED WITH EYES CLOSED AND EVEN, UNLABORED RESPIRATIONS. CALL LIGHT REMAINS WITHIN REACH. PT. REMAINS RATE CONTROLLED. VSS.
[2018-07-14] VITALS (14 sets, daily range): BP systolic 97–158; BP diastolic 60–96
--- NOTE | 2018-07-14 00:39 | NUR ---
PT. RESTING WITH EYES CLOSED. IV VANCO INFUSING WITHOUT SX OF REACTION. REMAINS AFEBRILE. CALL LIGHT REMAINS WITHIN REACH. PT. RATE CONTROLLED IN THE 60-70'S A-FIB. DENIES COMPLAINTS OF PAIN OR NEED.
--- NOTE | 2018-07-14 02:30 | NUR ---
IV VANCOMYCIN INFUSED. NO REACTIONS NOTED. PT. CONTINUES TO REST WITH EYES CLOSED IN NO DISTRESS. CALL LIGHT REMAINS WITHIN REACH. WILL CONTINUE TO ASSESS.
--- NOTE | 2018-07-14 04:22 | NUR ---
PT. REMAINS WITH INTERMITTENT COUGHING EPISODES. PT. ALSO CONTINUES WITH A-FIB, RATE CONTROLLED IN THE 70'S. REMAINS IN NO DISTRESS. CALL LIGHT REMAINS WITHIN REACH.
--- NOTE | 2018-07-14 06:20 | NUR ---
PT. MEDICATED PER PHYSICIAN ORDERS. EASILY AROUSABLE TO LIGHT VERBAL STIMULI. LAB AT BEDSIDE TO DRAW SECOND BLOOD CULTURE FROM PERIPHERAL SITE. AM LABS AND FIRST BLOOD CULTURE DRAWN FROM RT. IJ TRIPLE LUMEN WHITE PORT. PT. DENIES COMPLAINTS OF PAIN OR NEED AT THIS TIME. MAE. ALTAMIRANO. RESPS REMAIN EVEN AND UNLABORED. WILL CONTINUE TO CLOSELY MONITOR.
--- NOTE | 2018-07-14 06:45 | NUR ---
RECIEVED REPORT FROM LAM COOPER. ASSUMED PT CARE.
[2018-07-14 06:46] LABS: HEMATOCRIT 28.4 % (39.0-50.0); HEMOGLOBIN 9.1 g/dl (14.0-18.0); IMMATURE GRANULOCYTES 1.6 % (0.0-5.0); MEAN CELL VOLUME 98.3 fL CALC (80.0-100.0); MEAN CORPUSCULAR HGB 31.5 pG CALC (26.0-32.0); NEUT# 7.04 thou/uL (1.82-7.42); RED BLOOD COUNT 2.89 mill/uL (4.70-6.10); RED CELL DISTRI WIDTH 20.7 % (11.5-15.5)
[2018-07-14 06:53] LABS: INTERNATIONAL NORMALIZED RATIO 3.1 RATIO (0.7-1.3); PROTHROMBIN TIME 32.6 SECONDS (9.0-12.5)
[2018-07-14 06:56] LABS: ANION GAP 8 (6-22 (CALC)); BUN 35 mg/dL (8-23); BUN/CREATININE RATIO 27 (12-20 (CALC)); CARBON DIOXIDE 30 mmol/l (22-30); CHLORIDE 102 mmol/l (95-108); CREATININE 1.3 mg/dL (0.7-1.3); GFR 54 ML/MIN (>=60 (CALC)); GFR FOR AFR.AMER. > 60 ML/MIN (>=60 (CALC)); POTASSIUM 3.7 mmol/l (3.5-5.1); SODIUM 137 mmol/l (137-146)
--- NOTE | 2018-07-14 07:00 | NUR ---
PT A&OX3, ABLE TO MAKE NEEDS KNOWN AND UTILIZE CALL LIGHT.PERRL. AFIB ON TELEMETRY, HR-100, B/P 119/73, RR-25, T- 97.9, SA02@87% 2LPM VIA NC. PT DENIES CHEST PAIN, PALPITATIONS OR DISTRESS AT THIS TIME. REMAINS SOB WITH MINIMAL EXERTION, DRY, NON-PRODUCTIVE COUGH CONTINUES. RESPRATIONS EVEN/UNLABORED, LS CLEAR IN UPPER LOBES, DIMINISHED IN BASES. ABDOMEN SOFT, NON-TENDER, BSX4 ACTIVE, PT REPORTS PASSING GAS. BSX4 ACTIVE, LAST BM 07-13-18. TL @RIJ CDI, NO REDNESS OR S/S OF INFILTRATION NOTED AT SITE. CALL LIGHT IN REACH, WILL MONITOR.
--- NOTE | 2018-07-14 07:10 | NUR ---
FRIEND AT BEDSIDE FOR VISIT.
--- NOTE | 2018-07-14 07:30 | NUR ---
DIETARY ON UNIT, BREAKFAST TRAY SET UP
--- NOTE | 2018-07-14 10:00 | NUR ---
PT ASSISTED TO BSC, M ADAMA, RUDY WHIPPLE. COMPLETE BATH, DENTURE CARE & MOUTH CARE COMPLETE. PT THEN ASSISTED TO RECLINER TO SIT UP FOR A LITTLE. PT CONTINUES WITH A DRY COUGH, AND EXERTIONAL SOB. REMAINS AT BEDSIDE. CALL LIGHT IN REACH, WILL MONITOR.
--- NOTE | 2018-07-14 11:12 | NUR ---
DR. STOKES AND ANJELICA ANDUJAR AT BEDSIDE FOR ASSESSMENT AND TO DISCUSS PLAN OF CARE. NEW ORDERS RECIEVED.
--- NOTE | 2018-07-14 11:30 | NUR ---
DIETARY ON UNIT, LUNCH TRAY SET UP.
--- NOTE | 2018-07-14 12:58 | NUR ---
PT RESTING IN BED WITH EYES CLOSED, PT OFFERS NO COMPLAINTS AT THIS TIME. VANCOMYCIN INFUSING TO TL@RIJ ORDERED, NO S/S OF INFILTRATION OR REDNESS NOTED AT SITE. CALL LIGHT IN REACH. WILL MONITOR.
--- NOTE | 2018-07-14 14:00 | NUR ---
PT RESTING IN BED WITH EYES CLOSED, RESPIRATIONS EVEN/UNLABORED. CALL LIGHT IN REACH. WILL MONITOR.
--- NOTE | 2018-07-14 15:33 | NUR ---
PT DONE INFUSING VANCOMYCIN, PT FLUSHED IN FACE. MEDICATED WITH PRN COUGH SYRUP PER REQUEST, COOL CLOTH APPLIED TO FOREHEAD, PT TEMP 100.2 . NOTIFIED ANJELICA ANDUJAR OF PT STATUS. CALL LIGHT IN REACH. WILL MONITOR.
--- NOTE | 2018-07-14 15:35 | NUR ---
ANJELICA ANDUJAR AT BEDSIDE FOR ASSESSMENT AND TO DISCUSS PLAN OF CARE.
--- NOTE | 2018-07-14 15:54 | NUR ---
RT AT BEDSIDE FOR EKG.
--- NOTE | 2018-07-14 16:00 | NUR ---
NEW ORDERS RECIEVED. PER ANJELICA ANDUJAR. CONTINUE ORDERED VANCOMYCIN DOSE AT 0030 OVER 3 HRS, MONITOR FOR S/S OF HOARSE VOICE, FLUSHING OR RASH. STOP IMMEDIATELY IF THOSE S/S APPEAR.
--- NOTE | 2018-07-14 16:55 | NUR ---
PT RESTING IN BED WITH EYES CLOSED, OVERS NO COMPLAINTS AT THIS TIME. WILL MONITOR.
--- NOTE | 2018-07-14 18:00 | NUR ---
PT ARRIVED AT BEDSIDE WITH SUBWAY. PT RESTING IN BED, WILL MONITOR. T-99.3
--- NOTE | 2018-07-14 18:34 | NUR ---
PT AFEBRILE AT THIS TIME, T-98.3. ATE 1/2 OF A SUBWAY SANDWICH BROUGHT IN BY .
--- NOTE | 2018-07-14 19:40 | NUR ---
awake. denies distress. o2 cont per nc. telemetry monitor shows sinus rhythm. saline lock in place per rij tlc. po fluids taken well. voids per urinal. fall precautions cont.
--- NOTE | 2018-07-14 21:00 | NUR ---
robitussin ac 10cc given per request for cough.
--- NOTE | 2018-07-14 22:00 | NUR ---
eyes closed. no distress
[2018-07-15 00:01] VITALS: BP 121/77
--- NOTE | 2018-07-15 00:01 | NUR ---
eyes closed. no distress. director of cardiac cath lab shows sinus rhythm pvcs.
[2018-07-15 02:00] VITALS: BP 143/91
--- NOTE | 2018-07-15 02:00 | NUR ---
resting quietly. resps even & unlabored. no apparent distress.
[2018-07-15 04:00] VITALS: BP 146/83
--- NOTE | 2018-07-15 04:40 | NUR ---
lab here. blood drawn. to xray per wc for 2 v cxr, to medr floor for standing weight, then returned to icu. sao2 85% on o2 upon return. no resp distress.
[2018-07-15 05:01] LABS: HEMATOCRIT 30.5 % (39.0-50.0); HEMOGLOBIN 9.8 g/dl (14.0-18.0); IMMATURE GRANULOCYTES 0.9 % (0.0-5.0); MEAN CELL VOLUME 100.3 fL CALC (80.0-100.0); MEAN CORPUSCULAR HGB 32.2 pG CALC (26.0-32.0); MEAN CORPUSCULAR HGB CONC 32.1 g/L CALC (32.0-36.0); NEUT# 5.09 thou/uL (1.82-7.42); RED BLOOD COUNT 3.04 mill/uL (4.70-6.10); RED CELL DISTRI WIDTH 20.5 % (11.5-15.5)
[2018-07-15 05:09] LABS: INTERNATIONAL NORMALIZED RATIO 2.3 RATIO (0.7-1.3); PROTHROMBIN TIME 23.4 SECONDS (9.0-12.5)
[2018-07-15 05:16] LABS: ANION GAP 11 (6-22 (CALC)); BUN 34 mg/dL (8-23); BUN/CREATININE RATIO 29 (12-20 (CALC)); CARBON DIOXIDE 28 mmol/l (22-30); CHLORIDE 101 mmol/l (95-108); CREATININE 1.2 mg/dL (0.7-1.3); GFR 59 ML/MIN (>=60 (CALC)); GFR FOR AFR.AMER. > 60 ML/MIN (>=60 (CALC)); SODIUM 135 mmol/l (137-146)
[2018-07-15 05:20] LABS: POTASSIUM 4.7 mmol/l (3.5-5.1)
[2018-07-15 06:00] VITALS: BP 148/90
--- NOTE | 2018-07-15 06:00 | NUR ---
awake. using cell phone. no distress.
--- NOTE | 2018-07-15 06:45 | NUR ---
[facility]
--- NOTE | 2018-07-15 07:30 | NUR ---
PT A&OX3 ABLE TO MAKE ALL NEEDS KNOWN AND UTILIZE CALL LIGHT. SR ON TELEMETRY, HR 78. PT DENIES CHEST PAIN, PALPITATION, SOB OR DISTRESS AT THIS TIME. RESPIRATIONS EVEN/UNLABORED, LS CLEAR THROUGHOUT. ABDOMEN SOFT NON-TENDER, BSX4 ACTIVE, LAST BM 07-14-18. PT CONTINENT OF BLADDER, NO VOID THIS SHIFT. TL @RIJ/SL,NO S/S OF INFILTRATION OR REDNESS AT SITE DRESSING CDI. CALL LIGHT IN REACH. WILL MONITOR.
[2018-07-15 08:06] VITALS: BP 148/94
--- NOTE | 2018-07-15 08:08 | NUR ---
DIETARY ON UNIT, BREAKFAST TRAY SET UP.
--- NOTE | 2018-07-15 11:00 | NUR ---
DR. STOKES & PRATIMA AT BEDSIDE FOR ASSESSMENT AND TO DISCUSS PLAN OF CARE, NEW ORDERS RECIEVED.
--- NOTE | 2018-07-15 11:34 | NUR ---
DIETARY ON UNIT, LUNCH TRAY SET UP.
[2018-07-15 12:00] VITALS: BP 151/86
--- NOTE | 2018-07-15 12:12 | NUR ---
VANCO TROUGH 25, NOTIFIED [place] IN PHARMACY, TOLD TO STOP THIS DOSE AND HOLD. VANCO STOPPED PER PHARMACY. ANJELICA ANDUJAR NOTIFIED OF PT STATUS AND LAB RESULTS. WILL MONITOR.
--- NOTE | 2018-07-15 12:18 | NUR ---
Vancomycin consult Weight: 80.5 Kilograms Current dose being given: 1000 mg Current dosing interval: 12 hrs Current infusion time (hrs): 2 Trough level obtained: 25 mcg/ml Timing of trough - Number of hours before next dose: 0.5 Hrs New rate constant (janie): 0.047 hr-1 New half-life: 14.75 Hours New Vd from levels: 56.35 Liters (0.7 L/kg) Vancomycin 750 mg q 12 hrs. Infuse over 2 hrs Expected Cpeak: 30 mcg/ml Expected Ctrough: 18 mcg/ml
--- NOTE | 2018-07-15 13:30 | NUR ---
TL/TLC IV site discontinued, cath intact. No edema , no redness, voices no discomfort.
[2018-07-15] MEDS ORDERED: MEDDOSEPAK PO (13:40)
[2018-07-15] MEDS ORDERED: DOXYCYC MONO100 M2 PO (13:40)
[2018-07-15] MEDS ORDERED: LEVAQUIN750 MG PO (13:48)
[2018-07-15] MEDS ORDERED: DIGOXIN125 MCG PO (13:54)
--- NOTE | 2018-07-15 14:50 | NUR ---
Discharge instructions given. Patient verbalizes understanding of same. Discharged in stable condition via Wheelchair to Home with spouse. All belongings sent with pt.
== END 2018-07-15 14:50 | disposition home or self-care (01) | DRG 871 ==
LOC: ED 10:46 → ED-I 13:00 → ED 13:15 → ICU 13:16
PROVIDERS: Family Medicine; Nurse Practitioner Family; ADMIT Internal Medicine Nephrology; ATTEND Internal Medicine Nephrology
PROC: 02HV33Z Insertion of Infusion Device into Superior Vena Cava, Percutaneous Approach (ICD-10-PCS; principal; 2018-07-09)
DX: A41.81 Sepsis due to Enterococcus (principal); D61.810 Antineoplastic chemotherapy induced pancytopenia; D68.32 Hemorrhagic disorder due to extrinsic circulating anticoagulants; N17.9 Acute kidney failure, unspecified; J44.1 Chronic obstructive pulmonary disease with (acute) exacerbation; R04.2 Hemoptysis; R65.20 Severe sepsis without septic shock; I12.9 Hypertensive chronic kidney disease with stage 1 through stage 4 chronic kidney disease, or unspecified chronic kidney disease; N18.3 Chronic kidney disease, stage 3 (moderate); I48.0 Paroxysmal atrial fibrillation; T45.515A Adverse effect of anticoagulants, initial encounter; C67.9 Malignant neoplasm of bladder, unspecified; L98.9 Disorder of the skin and subcutaneous tissue, unspecified; E83.42 Hypomagnesemia; E87.6 Hypokalemia; E86.0 Dehydration; T36.8X5A Adverse effect of other systemic antibiotics, initial encounter; R23.2 Flushing; N40.0 Benign prostatic hyperplasia without lower urinary tract symptoms; T45.1X5A Adverse effect of antineoplastic and immunosuppressive drugs, initial encounter; Z79.899 Other long term (current) drug therapy; Z79.01 Long term (current) use of anticoagulants; Z87.891 Personal history of nicotine dependence
CPT/HCPCS: J1160; J3370; J3475; Q9967

== ENCOUNTER 2018-08-14 13:28 | Emergency (ER) | payer MEDICARE ==
[~2018-08-14] VITALS: Ht 182.9 cm; Wt 65.0 kg
[~2018-08-14 13:28] MED LIST changes: +DIGOXIN125 MCG PO; +DOXYCYC MONO100 M2 PO; +LEVAQUIN750 MG PO; +MEDDOSEPAK PO; +POT CHLORIDE10 ME5 PO
[2018-08-14 13:44] VITALS: BP 133/85
--- NOTE | 2018-08-14 17:34 | NUR ---
PT ARRIVED BY EMS IN RESPIRATORY FAILURE. CPR BY MECHANICAL COMPRESSIONS. PT AIRWAY PROTECTED WITH SIZE 4 LMA. PT WAS INTUBATED BY DR. HUFFMAN WITH SIZE 8 ET TUBE ON FIRST ATTEMPTED WITHOUT COMPLIATIONS. PT WAS VENTILATED WITH AMBU BAG SPO2 MONITOURED AT 94%. WHEN FAMILY ARRIVED SHE ASK THAT ONLY COMFORT MEASURES BE GIVEN. ALL RESUSITATION EFFORTS WERE STOPPED. LAM ZAPATA AT BEDSIDE WITH FAMILY
== END 2018-08-14 14:20 | disposition expired ==
LOC: ED 13:28
PROC: 0BH17EZ Insertion of Endotracheal Airway into Trachea, Via Natural or Artificial Opening (ICD-10-PCS; principal; 2018-08-14)
PROC: 5A12012 Performance of Cardiac Output, Single, Manual (ICD-10-PCS; 2018-08-14)
DX: I46.9 Cardiac arrest, cause unspecified (principal); I10 Essential (primary) hypertension; I48.91 Unspecified atrial fibrillation; J43.9 Emphysema, unspecified; Z66 Do not resuscitate; Z85.51 Personal history of malignant neoplasm of bladder